=== PATIENT | male | born 1930 | race Caucasian/White ===

== ENCOUNTER → 2018-11-25 | Outpatient (CLI) | payer MEDICARE, BC ==
[2013-12-14 14:58] VITALS: BP 120/62
[~2018-11-25] MED LIST: ASPI325T8 PO; BUSP15TA PO; CELE200C PO; CELE400C PO; CLOP75TA57 PO; FERR325T14 PO; HYDR-2769 PO; LORA0.5T PO; LOSA100T2 PO; METF500T16 PO; MULT-246 PO; OMEG1CAP6 PO; OXYC1TAB19 PO; REGADENOSON 0.4 MG/5 ML DISP.SYRIN. IV ONE; SIMV20TA PO; WARF-31 PO; WARF-78 PO
--- NOTE | 2018-11-25 10:54 | CARD ---
MR#: [id number] Date of Study: 11/25/2018 Ordering Physician: DEBRA GUTIERREZ, Referring Physician: DEBRA GUTIERREZ, Tech: Morenita Silva APPROVED REPORT EXAM: Two-dimensional and M-mode echocardiogram with Doppler and color Doppler. Other Information Quality : GoodHR: 71bpm INDICATION CAD RISK FACTORS Hypertension Hyperlipidemia 2D DIMENSIONS RVDd3.3 (2.9-3.5cm)Left Atrium(2D)4.8 (1.6-4.0cm) IVSd1.1 (0.7-1.1cm)Aortic Root(2D)2.7 (2.0-3.7cm) LVDd4.7 (3.9-5.9cm)LVOT Diameter2.1 (1.8-2.4cm) PWd1.0 (0.7-1.1cm)LVDs3.1 (2.5-4.0cm) FS (%) 32.7 %SV61.3 ml LVEF(%)61.1 (>50%) Aortic Valve AoV Peak Oscar.178.9cm/sAoV VTI32.5cm AO Peak GR.12.8mmHgLVOT Peak Oscar.99.7cm/s LVOT VTI 23.69cmAO Mean GR.6mmHg ARSENIO (VMAX)1.29be5BRK (VTI)2.46cm2 AI P 1/2 [id number] Mitral Valve MV E Peak Gr.123mmHgMV E Mean Gr.3mmHg Pulmonary Valve PV Peak Mvmnownn670.1cm/sPV Peak Grad.7mmHg Tricuspid Valve TR P. Rssvttey222aa/sRAP MQXTPHKP8zlEy TR Peak Gr.86puOpAWEL10dySa Pulmonary Vein S1 Oqubrmbv57.5cm/sD2 Eikdlnhb64.4cm/s PVa [id number] LEFT VENTRICLE The left ventricle is normal size. There is normal left ventricular wall thickness. The left ventricu lar systolic function is normal and the ejection fraction is within normal range. The Ejection Fracti on is >55%. There is normal LV segmental wall motion. Tissue Doppler imaging reveals mild left ventri cular diastolic dysfunction. RIGHT VENTRICLE The right ventricle is normal size. There is normal right ventricular wall thickness. The right ventr icular systolic function is normal. ATRIA The left atrium is moderately dilated. The right atrium size is normal. The interatrial septum is int act with no evidence for an atrial septal defect or patent foramen ovale as noted on 2-D or Doppler i maging. AORTIC VALVE The aortic valve is moderately calcified. Not well visualized. Doppler and Color Flow revealed mild a ortic regurgitation. There is no significant aortic valvular stenosis. MITRAL VALVE Mitral annular calcification is moderate. There is no evidence of mitral valve prolapse. There is no mitral valve stenosis. Doppler and Color-flow revealed moderate anteriorly directed mitral regurgitat ion. TRICUSPID VALVE The tricuspid valve is normal in structure and function. Doppler and Color Flow revealed trace to mil d tricuspid regurgitation with an estimated PAP of 37 mmHg. There is no tricuspid valve stenosis. PULMONIC VALVE The pulmonic valve is not well visualized. Doppler and Color Flow revealed no pulmonic valvular regur gitation. There is no pulmonic valvular stenosis. GREAT VESSELS The aortic root is normal in size. The IVC is normal in size and collapses >50% with inspiration. PERICARDIAL EFFUSION There is no evidence of significant pericardial effusion. Critical Notification Critical Value: No <Conclusion> The left ventricular systolic function is normal and the ejection fraction is within normal range. Th e Ejection Fraction is >55%. There is normal LV segmental wall motion. The aortic valve is moderately calcified. Not well visualized. Doppler and Color Flow revealed mild aortic regurgitation. Doppler and Color-flow revealed moderate anteriorly directed mitral regurgitation. Doppler and Color Flow revealed trace to mild tricuspid regurgitation with an estimated PAP of 37 mmH g. Signed by : Esdras Lema, Electronically Approved : 11/25/2018 10:54:09
--- NOTE | 2018-11-25 12:33 | RAD ---
MR#: [id number] Date of Study: 11/25/2018 Ordering Physician: DEBRA GUTIERREZ, Referring Physician: RUBIO ALVAREZ Tech: ALEX Newell, ARRT (R) (N) APPROVED REPORT Test Type: Pharmacological Stress Nurse/Tech: Jennifer Yanes RN Test Indications: CAD Cardiac History: HTN Medications: See Electronic Medical Record Medical History: See Electronic Medical Record Resting ECG: SR Resting Heart Rate: 64 bpm Resting Blood Pressure: 128/66mmHg Pretest Chest Pain: None Nurse/Tech Notes Lungs CTA, S1S2 Consent: The procedure was explained to the patient in lay terms. Informed consent was witnessed. Mina eout was entered into [employer]. History and Stress Test performed by Jennifer Yanes RN Pharm. Details Pharmacologic stress testing was performed using 0.4mg per 5ml of regadenoson given intravenously ove r 7-10 seconds. Stress Symptoms No chest pain or symptoms. POST EXERCISE Reason for Termination: Infusion complete Max HR: 90 bpm Max Blood Pressure: 133/61mmHg Blood Pressure response to exercise: Normal blood pressure response during stress. Heart Rate response to exercise: normal response Chest Pain: No. Arrhythmia: No. ST Change: No. INTERPRETATION Stress EKG Conclusion: Baseline EKG showed sinus rhythm. No ischemic changes at peak stress. No arr hythmias. Imaging Protocol IMAGE PROTOCOL: Rest Tc-99m/stress Tc-99m 1 day Rest: Stress: Viability: Radiopharm.Tc99m OckuidetfRb34u Sestamibi Dose10.6mCi 33mCi Img Date 11/25/2018 11/25/2018 Inj-Img Cgby82tgo. 60min. Rest Admin Site:IV - Left AntecubitalAdministrator:RT Kristian (R)(N) Stress Admin Site: IV - Left AntecubitalAdministrator: RT Kristian (R)(N) STRESS DATA End Diast. Vol.71.0mlAv. Heart Rate74.0bpm End Syst. Vol.13.0mlCO Index BSA4.3L/min Myocardial Dcrj987.0gEject. Nydgugxp57.0% Stress Rates Pk. Fill Rate3.93EDV/secLVtime Pk. Fill 230.52msec Pk. Empty Rate5.07ESV/secLVtime Pk. Lpnpn851.89msec /3 Pk. Fill1.50EDV/sec Stress Scores Regional WT0.00Summed WT6.00 Regional WM0.00Summed WM2.00 Study quality was good. Left Ventricular size was Normal at Rest and Stress. Lung uptake was . Left Ventricular ejection fraction is 82%. The rest and stress images show normal perfusion, normal contraction and thickening. LV Perf. Quant 17 Seg. SSS0.00 17 Seg. SRS6.00 17 Seg. SDS0.00 Stress Defect Extent (% LAD)0.00Rest Defect Extent (% LAD)8.80Rev. Defect Extent (% LAD)0.00 Stress Defect Extent (% LCX) 6.30Rest Defect Extent (% LCX)56.30Rev. Defect Extent (% LCX)6.30 Stress Defect Extent (% RCA)0.00Rest Defect Extent (% RCA)0.00Rev. Defect Extent (% RCA)0.00 Stress Defect Extent (% JAMARCUS)1.10Rest Defect Extent (% JAMARCUS)15.40Rev. Defect Extent (% JAMARCUS)1.10 Conclusion 1. Regadenoson cardioisotope stress test did not show any evidence of ischemia or infarct. 2. Normal left ventricular systolic function with ejection fraction calculated at 82%. 3. Low risk for cardiac events. Signed by : Debra Gutierrez, Electronically Approved : 11/25/2018 12:32:36
== END | disposition home or self-care (01) ==
LOC: NM 07:44
PROVIDERS: ATTEND Internal Medicine Cardiovascular Disease
DX: I08.3 Combined rheumatic disorders of mitral, aortic and tricuspid valves (principal); I25.10 Atherosclerotic heart disease of native coronary artery without angina pectoris; I10 Essential (primary) hypertension; E78.5 Hyperlipidemia, unspecified
CPT/HCPCS: 78452; 93017; 93306; A9500; J2785